=== PATIENT | female | born 1985 | race African-American/Black ===

== ENCOUNTER 2021-05-13 13:52 | Emergency (ER) | payer MEDICAID ==
[~2021-05-13] VITALS: Ht 165.1 cm; Wt 136.1 kg
--- NOTE | 2021-05-13 14:03 | NUR ---
Pt stated she is going home and walked out of the ER.
== END 2021-05-13 14:07 | disposition left against medical advice (07) ==
LOC: ER 13:52
DX: Z53.21 Procedure and treatment not carried out due to patient leaving prior to being seen by health care provider (principal)